=== PATIENT | male | born 1950 | race American Indian/Alaskan Native ===

== ENCOUNTER 2017-05-05 18:44 | Emergency (ER) | payer MEDICARE ==
--- NOTE | 2017-05-05 21:07 | Cat Scan Report ---
FINAL REPORT PROCEDURE: CT HEAD/BRAIN WO CON TECHNIQUE: Computerized tomography of the head was performed without contrast material. HISTORY: dizziness/ s/p fall hit head COMPARISON: No prior studies are available for comparison. FINDINGS: Brain: There is no evidence of intracranial hemorrhage. No parenchymal hemorrhage is seen. No mass lesions or mass effect is identified. No abnormal extra-axial fluid collections or masses are seen. Small old lacunar infarct visualized left caudate nucleus anteriorly. There is some decreased density seen in the periventricular white matter without mass effect. This is fairly symmetric and does not exhibit any mass effect consistent with gliosis probably on the basis of microvascular disease or white matter changes of aging. Ventricles: The ventricles, sulcal pattern and fissures are prominent consistent with atrophy. Bones: No evidence of acute fracture. Scalp hematoma seen overlying the right orbit and right side of the forehead. Paranasal sinuses: There appears to be a small amount of mucus collected posteriorly in the left side of the sphenoid sinus. Visualized portions of the paranasal sinuses otherwise appear clear. Mastoid air cells: clear IMPRESSION: There is mild to moderate atrophy and gliosis. Small old lacunar infarct is seen in the left caudate nucleus. No evidence of intracranial hemorrhage or skull fracture. Scalp hematoma seen overlying the right orbit. Minimal paranasal sinus disease as described.
[2017-05-05 21:39] LABS: Bilirubin,Urine NEG (Negative); Blood,Urine SM (Negative); Color,Urine Yellow (Yellow); Mucus,Urine 3+ /HPF; Protein,Urine <15 mg/dL mg/dL (Negative)
--- NOTE | 2017-05-05 21:55 | Emergency Department Report ---
ED General Adult HPI - General Chief complaint: Dizziness Stated complaint: FALL/KNOT ON HEAD Time Seen by Provider: 05/05/17 21:45 Source: patient, family Mode of arrival: Ambulatory Limitations: No Limitations - History of Present Illness Initial comments: Patient was leaving the [facility] where he was on jury duty he slipped and fell lost his footing and hit his right periorbital. Denies neck pain back pain LOC no focal neural complaints no visual complaintscomplaints consented to head ct but is refusing labs and further eval, states hasn't been dizzy and has no black or bloody stool, no cp, no abp pain, just slipped and hit forehead but "my doctor just did blood tests and it was all ok", therefore is refusing further w/u for fall at this time, no other c/o, or injuries -: Sudden Location: head Severity scale (0 -10): 0 Consistency: intermittent Associated Symptoms: denies other symptoms. denies: confusion, chest pain, cough, diaphoresis, fever/chills, headaches, loss of appetite, malaise, nausea/ vomiting, rash, seizure, shortness of breath, syncope, weakness - Related Data Previous Rx's Medication Instructions Recorded Last Taken Type Pantoprazole [Protonix] 40 mg PO BID #60 tablet 08/04/16 Unknown Rx oxyCODONE /ACETAMINOPHEN [Percocet 1 tab PO Q6H PRN #14 tablet 08/04/16 Unknown Rx 5/325 mg] Magnesium Chloride [Slow-Mag] 64 mg PO DAILY #7 tablet.er 08/05/16 Unknown Rx Potassium Chloride 20 meq PO DAILY #10 tab.er.prt 08/05/16 Unknown Rx Allergies Allergy/AdvReac Type Severity Reaction Status Date / Time No Known Allergies Allergy Verified 08/02/16 11:15 ED Review of Systems ROS: Stated complaint: FALL/KNOT ON HEAD Other details as noted in HPI Comment: All other systems reviewed and negative Constitutional: denies: diaphoresis, fever, malaise, weakness Eyes: denies: eye pain, eye discharge, vision change ENT: denies: dental pain, hearing loss, epistaxis Respiratory: denies: cough, orthopnea, shortness of breath, SOB with exertion, SOB at rest, stridor Cardiovascular: denies: chest pain, palpitations, dyspnea on exertion, orthopnea , edema, syncope, paroxysmal nocturnal dyspnea Gastrointestinal: denies: abdominal pain, nausea, vomiting, diarrhea, constipation, hematemesis, melena, hematochezia Genitourinary: denies: urgency, dysuria, frequency, hematuria, discharge Musculoskeletal: denies: joint swelling, arthralgia, myalgia Neurological: denies: headache, weakness, numbness, paresthesias, confusion, abnormal gait, vertigo Psychiatric: denies: anxiety, depression, auditory hallucinations, visual hallucinations, homicidal thoughts, suicidal thoughts Hematological/Lymphatic: denies: easy bruising ED Past Medical Hx - Past Medical History Previous Medical History?: Yes Hx Hypertension: No (neg stress test 08/01, EF 70%) Hx Heart Attack/AMI: No Hx GERD: Yes Hx Arthritis: Yes Hx Seizures: No Additional medical history: reflux - Surgical History Past Surgical History?: Yes Additional Surgical History: bladder biopsy-benign - Social History Smoking Status: Former Smoker Substance Use Type: Alcohol - Medications Home Medications: Home Medications Medication Instructions Recorded Confirmed Last Taken Type Pantoprazole [Protonix] 40 mg PO BID #60 tablet 08/04/16 Unknown Rx oxyCODONE /ACETAMINOPHEN [Percocet 1 tab PO Q6H PRN #14 tablet 08/04/16 Unknown Rx 5/325 mg] Magnesium Chloride [Slow-Mag] 64 mg PO DAILY #7 tablet.er 08/05/16 Unknown Rx Potassium Chloride 20 meq PO DAILY #10 tab.er.prt 08/05/16 Unknown Rx ED Physical Exam - General Limitations: No Limitations (no hyphema) General appearance: alert, in no apparent distress - Head Head exam: Present: other (right periorbital hematoma superior to the orbit no bony deformity) - Eye Eye exam: Present: PERRL, EOMI, other (no hyphema) Pupils: Present: normal accommodation - ENT ENT exam: Present: normal exam, normal orophraynx - Neck Neck exam: Present: normal inspection, other (spine nontender). Absent: tenderness, meningismus - Respiratory Respiratory exam: Present: normal lung sounds bilaterally. Absent: respiratory distress, wheezes, rales, rhonchi, stridor, chest wall tenderness, accessory muscle use, prolonged expiratory - Cardiovascular Cardiovascular Exam: Present: regular rate, normal rhythm, normal heart sounds. Absent: rubs, gallop - GI/Abdominal GI/Abdominal exam: Present: soft. Absent: tenderness, guarding, rebound, mass, pulsatile mass - External exam: Present: normal external exam - Extremities Exam Extremities exam: Present: normal capillary refill. Absent: pedal edema, joint swelling, calf tenderness - Back Exam Back exam: Present: normal inspection. Absent: full ROM, tenderness, CVA tenderness (R), CVA tenderness (L), muscle spasm, paraspinal tenderness, vertebral tenderness - Neurological Exam Neurological exam: Present: alert, oriented X3, CN II-XII intact. Absent: motor sensory deficit ED Course Vital Signs 05/05/17 19:39 Temperature 97.7 F Pulse Rate 80 Respiratory 18 Rate Blood Pressure 167/88 O2 Sat by Pulse 97 Oximetry ED Medical Decision Making - EKG Data -: EKG Interpreted by Me EKG shows normal: sinus rhythm Rate: normal - EKG Data Interpretation: other (no acute ischemic change) - Medical Decision Making CT was read as small hematoma to the forehead otherwise chronic changes no acute bleed or hemorrhage. Patient has no bony injuries abdomen and chest are within normal limits EKG is normal he is refusing further testing he was aware of risks including disability or and/or dizzy and syncopal spells that would further evaluate cardiopulmonary emergencies she is refusing this at this time he is alert and oriented 3 and does have capacity is therefore stable for outpatient follow-up E was not intoxicated. The evaluation shows a small forehead hematoma with a nonfocal neural exam GCS 15 Critical care attestation.: If time is entered above; I have spent that time in minutes in the direct care of this critically ill patient, excluding procedure time. ED Disposition Clinical Impression: Traumatic hematoma of forehead Disposition: DC-01 TO HOME OR SELFCARE Is pt being admited?: No Condition: Stable Instructions: Minor Head Injury (ED), Contusion in Adults (ED) Additional Instructions: Return if new or alarming symptoms or call 911 Referrals: JAYDA FUCHS MD [Primary Care Provider] - 3-5 Days Time of Disposition: 22:06
[2017-05-05 22:32] VITALS: BP 177/107
--- NOTE | 2017-05-05 23:45 | XRay Report ---
FINAL REPORT EXAM: XR CHEST ROUTINE 2V HISTORY: Lightheadedness/Dizziness TECHNIQUE: PA and lateral views of the chest PRIORS: None. FINDINGS: Lines, tubes, and devices: N/A Lungs and pleura: Trachea is normal in position. Lungs are clear of infiltrate, pleural effusion, vascular congestion, or pneumothorax. Cardiomediastinal silhouette: Cardiac and mediastinal silhouettes are unremarkable. Other: Bony structures are intact. IMPRESSION: No acute cardiopulmonary process seen.
== END 2017-05-05 22:30 | disposition home or self-care (01) ==
LOC: ED 18:44
DX: S00.83XA Contusion of other part of head, initial encounter (principal); K21.9 Gastro-esophageal reflux disease without esophagitis; M19.90 Unspecified osteoarthritis, unspecified site; J45.909 Unspecified asthma, uncomplicated; Z87.891 Personal history of nicotine dependence; W01.198A Fall on same level from slipping, tripping and stumbling with subsequent striking against other object, initial encounter; Y93.89 Activity, other specified; Y92.89 Other specified places as the place of occurrence of the external cause; Y99.8 Other external cause status
CPT/HCPCS: 70450; 71046; 81001; 93005; 93010; 99284